=== PATIENT | female | born 2000 | race Caucasian/White ===

== ENCOUNTER 2022-12-13 11:00 | Outpatient (CLI) | payer OTHER | END 2022-12-13 11:14 | disposition home or self-care (01) | LOC: SONOGRAMA 11:00 | PROVIDERS: ATTEND Surgery | DX: D24.2 Benign neoplasm of left breast (principal) ==

== ENCOUNTER 2023-06-13 06:39 | Day surgery (SDC) | payer OTHER ==
[2023-06-12 09:50] LABS: HEMATOCRIT 39.8 % (36.0-45.00); HEMOGLOBIN 13.7 g/dL (12.0-15.00); MEAN CELL VOLUME 92.3 fL (80.00-100.00); MEAN CORPUSCULAR HEMOGLOBIN 31.7 pg (27.00-32.0); MEAN CORPUSCULAR HGB CONC 34.4 g/dl (32.0-36.0); PLATELET COUNT 309 K/uL (150-450); RED BLOOD COUNT 4.31 M/uL (4.00-6.00); RED CELL DISTRIBUTION WIDTH 12.4 % (11.5-14.5)
[2023-06-12 10:01] LABS: PH,URINE 6.5 (5.0-8.0); URINE APPEARANCE Clear; URINE BILIRRUBIN Negative (NEGATIVE); URINE BLOOD Large; URINE COLOR Yellow; URINE GLUCOSE Negative (NEGATIVE); URINE LEUKOCYTE Negative; URINE NITRATE Negative; URINE PROTEIN Negative (NEGATIVE)
[2023-06-12 10:04] LABS: URINE BACTERIA 225.4 uL (0.0-1933); URINE EPITHELIAL CELLS 6.6 uL (0.0-38.8); URINE RBC 599.6 uL (0.0-20.8); URINE WBC 18.6 uL (0.0-23.2)
[2023-06-12 10:12] LABS: ALBUMIN 3.8 gm/dL (3.4-5.0); BILIRUBIN TOTAL 0.33 mg/dL (0.3-1.2); CALCIUM 9.4 mg/dL (8.5-10.1); CREATININE SERUM 0.86 mg/dL (0.55-1.02); GFR 83.29; GLOBULINA 3.7 G/DL (2.4-3.5); POTASSIUM 4.52 mEq/L (3.5-5.1); TOTAL PROTEIN 7.5 gm/dL (6.4-8.2)
[2023-06-12 10:17] LABS: INR 1.01
[2023-06-12 10:18] LABS: PROTHROMBIN TIME 10.6 SECONDS (9.0-11.5)
== END 2023-06-13 22:05 | disposition home or self-care (01) ==
LOC: CIR.AMB 06:39
PROVIDERS: ATTEND Surgery
DX: D24.2 Benign neoplasm of left breast (principal); N60.22 Fibroadenosis of left breast
CPT/HCPCS: 19125; 19281; L8699